=== PATIENT | female | born 1990 | race Caucasian/White ===

== ENCOUNTER 2019-04-24 18:23 | Observation (INO) | payer OTHER, SELFPAY ==
[2019-04-24 19:16] LABS: Add Urine Microscopic? YES; Appearance Urine Clear (Clear); Bacteria Urine Trace /hpf; Bilirubin Urine Negative (Negative); Blood Urine 1+ (Negative); Color Urine Yellow (Yellow); Glucose Urine UA Negative (Negative); Ketones Urine Negative (Negative); Leukocyte Esterase Ur Negative LEU/UL (Negative); Mucus Urine Few /lpf; Nitrate Urine Negative (Negative); Protein Urine Negative (Negative); RBC Urine 0-2 /hpf (0-2); Specific Grav Ur 1.017 (1.001-1.035); Squamous Epithelial Cell Urine Rare /hpf (Few); Urobilinogen Urine Negative mg/dL (<2.0); WBC Urine 0-3 /hpf
[2019-04-24 19:36] VITALS: BMI 21.2
--- NOTE | 2019-05-12 13:02 | PM.OBTRLD ---
OB - Triage/Final Diagnosis Evaluation Laboratory results: Laboratory Tests 04/24/19 19:03 Urine Color Yellow Urine Appearance Clear Urine pH 6.0 Ur Specific [place] 1.017 Urine Protein Negative Urine Glucose (UA) Negative Urine Ketones Negative Ur Blood (Man) 1+ H Urine Nitrate Negative Urine Bilirubin Negative Urine Urobilinogen Negative Leukocyte Esterase Rfl Negative Urine RBC 0-2 Urine WBC 0-3 Ur Squamous Epith Cells Rare Urine Bacteria Trace Hyaline Casts 1-2 Urine Mucus Few H Final Diagnosis (1) Spotting during in second trimester: Code(s): O26.852 - Spotting complicating , second trimester Status: Acute
== END 2019-04-24 21:40 | disposition home or self-care (01) ==
PROVIDERS: Admitting Provider Student in an Organized Health Care Education/Training Program; PCP Internal Medicine; Visit Provider Student in an Organized Health Care Education/Training Program
DX: O26.852 Spotting complicating pregnancy, second trimester (principal); Z3A.23 23 weeks gestation of pregnancy
CPT/HCPCS: 81001; 87086; G0378; G0379

== ENCOUNTER 2019-05-12 10:17 | Outpatient (CLI) | payer OTHER, SELFPAY ==
[2019-05-12 13:21] LABS: Basophils Absolute Auto 0.1 K/mm3 (0.0-0.1); Basophils Percent Auto 0.7 % (0.2-1.2); Eosinophils Absolute Auto 0.2 K/mm3 (0-0.3); Eosinophils Percent Auto 1.4 % (0-4.4); Hematocrit 36.3 % (37.0-47.0); Immature Granulocyte Absolute 0.07 K/mm3 (0.00-0.031); Immature Granulocyte Percent A 0.7 % (0-0.5); Lymphocytes Absolute Auto 1.58 K/mm3 (0.9-3.2); Lymphocytes Percent Auto 15.2 % (18.3-44.2); Mean Corpuscular HGB Conc 33.1 g/dl (32-36); Mean Corpuscular Hemoglobin 29.8 pg (26-34); Mean Corpuscular Volume 90.1 fl (80-100); Mean Platelet Volume 10.7 fl (7.4-10.4); Monocytes Absolute Auto 1.1 K/mm3 (0.1-0.6); Monocytes Percent Auto 10.1 % (2.6-8.5); Neutrophils Absolute Auto 7.5 K/mm3 (1.3-6.7); Neutrophils Percent Auto 71.9 % (45.5-73.1); Platelet Count Result 272 k/mm3 (150-375); Red Blood Count 4.03 M/mm3 (4.2-5.4); Red Cell Distribution Width 12.5 % (11.5-14.5); White Blood Count 10.4 K/mm3 (4.5-10.0)
[2019-05-12 13:29] LABS: Glucose 1 Hour PP 50gm Dose 64 mg/dL
== END 2019-05-12 10:18 | disposition home or self-care (01) ==
LOC: ANHLAB 10:18
PROVIDERS: PCP Internal Medicine; Visit Provider Obstetrics & Gynecology
DX: Z34.90 Encounter for supervision of normal pregnancy, unspecified, unspecified trimester (principal); Z3A.00 Weeks of gestation of pregnancy not specified
CPT/HCPCS: 36415; 82947; 85025

== ENCOUNTER 2019-06-02 10:04 | Outpatient (RCR) | payer OTHER, SELFPAY ==
[2019-06-02 12:15] VITALS: BP 116/63; PULSE 81
[2019-06-02 12:50] LABS: Fetal Fibronectin Negative
== END 2019-08-01 10:05 | disposition home or self-care (01) ==
LOC: ANHOBOP 10:04
PROVIDERS: PCP Internal Medicine; Visit Provider Obstetrics & Gynecology
DX: O36.8130 Decreased fetal movements, third trimester, not applicable or unspecified (principal); Z3A.29 29 weeks gestation of pregnancy
CPT/HCPCS: 59025; 82731

== ENCOUNTER 2019-07-11 14:45 | Outpatient (CLI) | payer OTHER, SELFPAY ==
[2019-07-11 15:33] LABS: Basophils Absolute Auto 0.1 K/mm3 (0.0-0.1); Basophils Percent Auto 0.5 % (0.2-1.2); Eosinophils Absolute Auto 0.1 K/mm3 (0-0.3); Eosinophils Percent Auto 0.9 % (0-4.4); Hematocrit 36.7 % (37.0-47.0); Hemoglobin 12.4 g/dL (12.0-15.0); Immature Granulocyte Absolute 0.08 K/mm3 (0.00-0.031); Immature Granulocyte Percent A 0.7 % (0-0.5); Lymphocytes Absolute Auto 1.66 K/mm3 (0.9-3.2); Lymphocytes Percent Auto 14.8 % (18.3-44.2); Mean Corpuscular HGB Conc 33.8 g/dl (32-36); Mean Corpuscular Hemoglobin 30.2 pg (26-34); Mean Corpuscular Volume 89.3 fl (80-100); Monocytes Percent Auto 8.8 % (2.6-8.5); Neutrophils Absolute Auto 8.4 K/mm3 (1.3-6.7); Neutrophils Percent Auto 74.3 % (45.5-73.1); Platelet Count Result 239 k/mm3 (150-375); Red Blood Count 4.11 M/mm3 (4.2-5.4); Red Cell Distribution Width 12.5 % (11.5-14.5); White Blood Count 11.2 K/mm3 (4.5-10.0)
[2019-07-11 16:20] LABS: HIV 1/2 Ab P24 Ag Result Negative (Negative)
[2019-07-12 08:47] LABS: Rapid Plasma Reagin Non-Reactive (NonReactive)
== END 2019-07-11 14:46 | disposition home or self-care (01) ==
PROVIDERS: PCP Internal Medicine; Visit Provider Obstetrics & Gynecology
DX: Z34.03 Encounter for supervision of normal first pregnancy, third trimester (principal)
CPT/HCPCS: 36415; 85025; 86592; 86703; G0432

== ENCOUNTER 2019-07-21 09:25 | Outpatient (CLI) | payer OTHER, SELFPAY ==
[2019-07-21] VITALS (11 sets, daily range): BP systolic 115–124; BP diastolic 62–82; PULSE 81–90; TEMP 36.5
[2019-07-21 10:24] LABS: Basophils Absolute Auto 0.1 K/mm3 (0.0-0.1); Basophils Percent Auto 0.6 % (0.2-1.2); Eosinophils Absolute Auto 0.1 K/mm3 (0-0.3); Eosinophils Percent Auto 1.2 % (0-4.4); Hematocrit 34.8 % (37.0-47.0); Hemoglobin 11.9 g/dL (12.0-15.0); Immature Granulocyte Absolute 0.06 K/mm3 (0.00-0.031); Immature Granulocyte Percent A 0.7 % (0-0.5); Lymphocytes Absolute Auto 1.47 K/mm3 (0.9-3.2); Lymphocytes Percent Auto 16.5 % (18.3-44.2); Mean Corpuscular HGB Conc 34.2 g/dl (32-36); Mean Corpuscular Hemoglobin 30.4 pg (26-34); Mean Corpuscular Volume 88.8 fl (80-100); Mean Platelet Volume 11.8 fl (7.4-10.4); Monocytes Absolute Auto 0.8 K/mm3 (0.1-0.6); Monocytes Percent Auto 9.1 % (2.6-8.5); Neutrophils Absolute Auto 6.4 K/mm3 (1.3-6.7); Neutrophils Percent Auto 71.9 % (45.5-73.1); Platelet Count Result 203 k/mm3 (150-375); Red Blood Count 3.92 M/mm3 (4.2-5.4); Red Cell Distribution Width 12.8 % (11.5-14.5); White Blood Count 8.9 K/mm3 (4.5-10.0)
[2019-07-21 10:28] LABS: Add Urine Microscopic? YES; Appearance Urine Clear (Clear); Bacteria Urine Trace /hpf; Bilirubin Urine Negative (Negative); Blood Urine Negative (Negative); Color Urine Straw (Yellow); Glucose Urine UA Negative (Negative); Ketones Urine Negative (Negative); Leukocyte Esterase Ur 1+ LEU/UL (Negative); Nitrate Urine Negative (Negative); Protein Urine Negative (Negative); RBC Urine 0-2 /hpf (0-2); Specific Grav Ur 1.009 (1.001-1.035); Squamous Epithelial Cell Urine Occasional /hpf (Few); Urobilinogen Urine Negative mg/dL (<2.0)
[2019-07-21 10:31] LABS: Creatinine Urine 37.6 mg/dL; Total Protein Urine Random 12 mg/dL
[2019-07-21 10:53] LABS: Alanine Aminotransferase 11 U/L (4-35); Albumin Level 3.3 g/dL (3.5-5.1); Alkaline Phosphatase 124 U/L (38-126); Aspartate Amino Transferase 24 U/L (14-36); Bilirubin,Total 0.3 mg/dL (0.2-1.3); Blood Urea Nitrogen 10 mg/dL (7-17); Calcium 8.7 mg/dL (8.4-10.2); Carbon Dioxide 22 mmol/L (22-30); Estimated Glomerular Filt Rate > 60; Glucose 74 mg/dL (65-105); Potassium 3.8 mmol/L (3.4-5.0); Sodium 135 mmol/L (137-145); Uric Acid 5.5 mg/dL (2.5-7.5)
--- NOTE | 2019-07-21 12:00 | PC.NURSE ---
Dr. Mccallum returned call and informed of lab results, BP's, and reactive NST. OK to discharge to home. would like pt to do a 24 hr urine collection.
[2019-07-21 12:31] LABS: Chloride 108 mmol/L (98-107)
== END 2019-07-21 12:20 | disposition home or self-care (01) ==
LOC: ANHOBOP 09:31 → ANHOBPP 09:32
PROVIDERS: PCP Internal Medicine; Visit Provider Obstetrics & Gynecology
DX: O13.9 Gestational [pregnancy-induced] hypertension without significant proteinuria, unspecified trimester (principal); Z3A.00 Weeks of gestation of pregnancy not specified
CPT/HCPCS: 36415; 59025; 80053; 81001; 82570; 84156; 84550; 85025; 99199

== ENCOUNTER 2019-07-28 11:59 | Outpatient (CLI) | payer OTHER, SELFPAY ==
[2019-07-28 12:02] VITALS: BP 127/83; PULSE 94
[2019-07-28 12:15] VITALS: BP 127/83; PULSE 105; PULSE 94
[2019-07-28 12:30] VITALS: BP 132/83; PULSE 92
[2019-07-28 12:44] LABS: Basophils Absolute Auto 0.1 K/mm3 (0.0-0.1); Basophils Percent Auto 0.5 % (0.2-1.2); Eosinophils Absolute Auto 0.1 K/mm3 (0-0.3); Hematocrit 35.6 % (37.0-47.0); Immature Granulocyte Absolute 0.05 K/mm3 (0.00-0.031); Immature Granulocyte Percent A 0.5 % (0-0.5); Lymphocytes Absolute Auto 1.67 K/mm3 (0.9-3.2); Lymphocytes Percent Auto 17.3 % (18.3-44.2); Mean Corpuscular HGB Conc 33.7 g/dl (32-36); Mean Corpuscular Hemoglobin 29.9 pg (26-34); Mean Corpuscular Volume 88.8 fl (80-100); Mean Platelet Volume 12.2 fl (7.4-10.4); Monocytes Absolute Auto 0.8 K/mm3 (0.1-0.6); Monocytes Percent Auto 8.1 % (2.6-8.5); Neutrophils Percent Auto 72.6 % (45.5-73.1); Platelet Count Result 211 k/mm3 (150-375); Red Blood Count 4.01 M/mm3 (4.2-5.4); Red Cell Distribution Width 12.6 % (11.5-14.5); White Blood Count 9.7 K/mm3 (4.5-10.0)
[2019-07-28 13:07] LABS: Alanine Aminotransferase 16 U/L (4-35); Albumin Level 3.4 g/dL (3.5-5.1); Alkaline Phosphatase 133 U/L (38-126); Aspartate Amino Transferase 31 U/L (14-36); Bilirubin,Total 0.4 mg/dL (0.2-1.3); Blood Urea Nitrogen 11 mg/dL (7-17); Calcium 8.8 mg/dL (8.4-10.2); Carbon Dioxide 21 mmol/L (22-30); Chloride 106 mmol/L (98-107); Estimated Glomerular Filt Rate > 60; Glucose 117 mg/dL (65-105); Potassium 3.6 mmol/L (3.4-5.0); Sodium 134 mmol/L (137-145); Uric Acid 5.3 mg/dL (2.5-7.5)
== END 2019-07-28 13:15 | disposition home or self-care (01) ==
LOC: ANHOBOP 12:03 → ANHOBPP 12:03
PROVIDERS: PCP Internal Medicine; Visit Provider Student in an Organized Health Care Education/Training Program
DX: O13.9 Gestational [pregnancy-induced] hypertension without significant proteinuria, unspecified trimester (principal); Z3A.00 Weeks of gestation of pregnancy not specified
CPT/HCPCS: 36415; 59025; 80053; 84550; 85025; 99199

== ENCOUNTER 2019-08-01 06:55 | Inpatient (IN) | payer OTHER, SELFPAY ==
[2019-08-01] VITALS (25 sets, daily range): BP systolic 98–145; BP diastolic 69–116; PULSE 71–116; RESP 14–16; TEMP 36.7–37.1; O2SAT 99–100; BMI 25.0
[2019-08-01 07:37] LABS: Basophils Absolute Auto 0.1 K/mm3 (0.0-0.1); Basophils Percent Auto 0.8 % (0.2-1.2); Eosinophils Absolute Auto 0.1 K/mm3 (0-0.3); Hematocrit 36.2 % (37.0-47.0); Hemoglobin 12.4 g/dL (12.0-15.0); Immature Granulocyte Absolute 0.03 K/mm3 (0.00-0.031); Immature Granulocyte Percent A 0.3 % (0-0.5); Lymphocytes Absolute Auto 1.85 K/mm3 (0.9-3.2); Lymphocytes Percent Auto 21.4 % (18.3-44.2); Mean Corpuscular HGB Conc 34.3 g/dl (32-36); Mean Corpuscular Hemoglobin 30.3 pg (26-34); Mean Corpuscular Volume 88.5 fl (80-100); Mean Platelet Volume 12.4 fl (7.4-10.4); Monocytes Absolute Auto 1.1 K/mm3 (0.1-0.6); Monocytes Percent Auto 13.1 % (2.6-8.5); Neutrophils Absolute Auto 5.5 K/mm3 (1.3-6.7); Neutrophils Percent Auto 63.4 % (45.5-73.1); Platelet Count Result 216 k/mm3 (150-375); Red Blood Count 4.09 M/mm3 (4.2-5.4); Red Cell Distribution Width 12.5 % (11.5-14.5); White Blood Count 8.7 K/mm3 (4.5-10.0)
[2019-08-01] MEDS: OXYTOCIN 30 UNITS/NS 500 ML 30 UNITS/500 ML BAG IV CONT ×2 (07:39→11:35)
[2019-08-01] MEDS: LACTATED RINGERS 1,000 ML 125 ML IV CONT (07:40)
--- NOTE | 2019-08-01 08:17 | LDADM ---
This patient, Madalyn Tovar, was admitted to Labor/Delivery/Recovery 107 on 08/01/19 at 06:55. Plans for labor, pain management and were discussed with patient. Patient/family oriented to hospital policies and general routines including ID bracelet, bed and alarms, visiting hours, pain management, procedures, bathroom and other care routines, personal items, smoking policy, room service/diet and guest tray routines, infant security routines, and visiting hours. Patient/Family are encouraged to report perceived risks to care and to ask questions if they do not understand what they are told or what they should do. See OBIX for further documentation.
--- NOTE | 2019-08-01 09:02 | WPDANESEPP ---
Anes - Eval Pre Procedure Procedure: Labor Pain Management Date/Time: 08/01/19 09:02 Surgeon: Xena Preop Diagnosis: Pain During Labor Pre Op Diagnosis: induction of labor Patient Data Age: 29 Gender: F Height: 5 ft 8 in Weight: 74.55 kg Last Vital Signs Pulse 77 08/01/19 09:01 BP 133/82 08/01/19 09:01 Allergies Allergy/AdvReac Type Severity Reaction Status Date / Time Sulfa (Sulfonamide Allergy Severe Urticaria Verified 07/28/19 10:47 Antibiotics) Home Medications Medication Instructions Recorded Confirmed Type vits 75-iron 28 mg-folic 1 pkg PO DAILY 02/03/19 08/01/19 History acid 800 mcg-omega-3 oral combo pack sertraline 50 mg tablet 50 mg PO DAILY #90 tablet 06/21/19 08/01/19 Rx Laboratory Tests 08/01/19 08/01/19 08/01/19 07:18 07:18 07:18 WBC 8.7 K/mm3 K/mm3 (4.5-10.0) RBC 4.09 M/mm3 L M/mm3 (4.2-5.4) Hgb 12.4 g/dL g/dL (12.0-15.0) Hct 36.2 % L % (37.0-47.0) MCV 88.5 fl fl (80-100) MCH 30.3 pg pg (26-34) MCHC 34.3 g/dl g/dl (32-36) RDW 12.5 % % (11.5-14.5) Plt Count 216 k/mm3 k/mm3 (150-375) MPV 12.4 fl H fl (7.4-10.4) Immature Gran % (Auto) 0.3 % % (0-0.5) Neut % (Auto) 63.4 % % (45.5-73.1) Lymph % (Auto) 21.4 % % (18.3-44.2) [place] % (Auto) 13.1 % H % (2.6-8.5) Eos % (Auto) 1.0 % % (0-4.4) Baso % (Auto) 0.8 % % (0.2-1.2) Lymph # (Auto) 1.85 K/mm3 K/mm3 (0.9-3.2) [place] # (Auto) 1.1 K/mm3 H K/mm3 (0.1-0.6) Eos # (Auto) 0.1 K/mm3 K/mm3 (0-0.3) Baso # (Auto) 0.1 K/mm3 K/mm3 (0.0-0.1) Abs Immat Gran (auto) 0.03 K/mm3 K/mm3 (0.00-0.031) Absolute Neuts (auto) 5.5 K/mm3 K/mm3 (1.3-6.7) Absolute Nucleated RBC 0.0 K/mm3 K/mm3 (0.0-0.012) Nucleated RBC % 0.0 % % (0.0-0.2) RPR Pending Rubella IgG Antibody Pending Blood Type Antibody Screen 08/01/19 07:18 WBC RBC Hgb Hct MCV MCH MCHC RDW Plt Count MPV Immature Gran % (Auto) Neut % (Auto) Lymph % (Auto) [place] % (Auto) Eos % (Auto) Baso % (Auto) Lymph # (Auto) [place] # (Auto) Eos # (Auto) Baso # (Auto) Abs Immat Gran (auto) Absolute Neuts (auto) Absolute Nucleated RBC Nucleated RBC % RPR Rubella IgG Antibody Blood Type B Positive Antibody Screen Negative : gestational age (EDC 08/16/19) Patient hx anesthesia problems: none Family hx anesthesia problems: none Prior Surgeries: tonsillectomy, ovarian cystectomy PMFSH Social History Social History Smoking status: Never smoker Second hand tobacco smoke exposure: No Alcohol intake: never Substance use: never Spiritual care concerns: No Exam Day of Procedure 08/01/19 09:02
[2019-08-01 09:48] LABS: Rubella IgG Antibody > 120.0 IU/ML
[2019-08-01] MEDS: ACETAMINOPHEN 500 MG TABLET 1000 MG PO (12:16)
[2019-08-01 13:56] LABS: Rapid Plasma Reagin Non-Reactive (NonReactive)
[2019-08-01] MEDS: IBUPROFEN 600 MG TABLET PO (16:22)
[2019-08-01] MEDS: BENZOCAINE 20% AER SPR (*SP) 56 GM CAN 1 SPRAY TOPICAL (16:23)
[2019-08-01] MEDS: WITCH HAZEL 40 PADS 1 PAD TOPICAL (16:23)
--- NOTE | 2019-08-01 17:00 | PC.NURSE ---
Patient transferred to post room #283 via wheelchair. Support person present. Oriented to unit, room, information board, rooming in, admission packet and security measures. Patient verbalizes understanding.
[2019-08-01] MEDS: ACETAMINOPHEN 325 MG TABLET 650 MG PO (20:55)
[2019-08-02 05:12] LABS: Hematocrit 34.4 % (37.0-47.0); Hemoglobin 11.6 g/dL (12.0-15.0)
[2019-08-02 08:30] VITALS: BP 120/69; PULSE 99; RESP 18; TEMP 36.8; O2SAT 99
--- NOTE | 2019-08-02 08:42 | P.PNOB_ITS ---
OB - PN: Subj Subjective Date/time seen: 08/02/19 08:42 She desires to go home today. She has good support at home. Patient comments: pain well controlled, tolerating diet and other (Decreasing lochia.) baby status: doing well and nursing well [place] feeding status: exclusively breast feeding OB - PN: Obj Data Labs CBC & Chem 7: 08/02/19 04:37 Labs: Laboratory Results - last 24 hr 08/01/19 08/01/19 08/02/19 07:18 07:18 04:37 Hgb 11.6 L Hct 34.4 L RPR Non-reactive Rubella IgG Antibody > 120.0 OB - PN A/P Plan day: 1 Plan: routine care Comments: Patient doing well. Time Spent With Patient Time: Total time spent is greater than 50% in coordination of care (as documented) at patient's floor/unit and/or counseling patient: Exam Psych: Affect: normal affect Other: Abd: fundus firm below umbilicus, nontender Perineum: healing Ext: nontender
[2019-08-02] MEDS: MULTIVIT/MIN/PREN/FOL AC/IRON TABLET 1 TAB PO (08:43)
--- NOTE | 2019-08-02 08:43 | PM.IMHP ---
H&P: HPI History of Present Illness Chief complaint: induction of labor Narrative: Madalyn Tovar is a 29 year old female LMP 11/11/19 with an EDC 08/16/19 at 37 6/7 weeks consistent with a 9 and 19 week ultrasound. She was admitted for medical induction of labor due to gestational hypertension. She deneis headache, scotomata or RUQ pain. Her labs were normal. course significant for history of anxiety. She was started on Zoloft during third trimester and initiated counseling and her anxiety improved. Labs:B+ antibody negative. HIV, GC/CHL neg, RPR NR, H/H-, HepBSag-ng, HepCab-negative.Rub-Im, TSH Nl, varicella immune, Urine neg, CF-neg, pap-nl,vitD neg, i hour glucola- 64, , hi neg, rpr-nr, GBS neg Review of Systems Review of Systems: All systems reviewed & are unremarkable except as noted in HPI and below Constitutional: Constitutional: Reports no additional constitutional complaints and Denies headache(s) Eyes: Eyes: Denies spots in vision ENT: Reports system reviewed and no additional complaints, except as documented and Denies headache(s) Cardiovascular: Cardiovascular: Denies chest pain and Denies dyspnea Respiratory: Respiratory: Denies dyspnea Gastrointestinal: Gastrointestinal: Reports no additional gastrointestinal complaints Genitourinary: Genitourinary: Reports amenorrhea Musculoskeletal: Musculoskeletal: Reports no additional musculoskeletal complaints Integumentary/Breasts: Skin/Breast: Denies breast mass and Denies rash Neurologic: Denies headache(s) Psychiatric: Psychiatric: Reports no additional psychiatric complaints [facility] Past Medical History Medical History Anxiety Chronic UTI Encounter for care in third trimester of first Encounter for supervision of normal first in second trimester Environmental allergies Gestational hypertension Surgical History Surgical History H/O ovarian cystectomy Hx of tonsillectomy Family History Family History Father Family history of hypercholesterolemia Asthma Grandparent Family history of malignant neoplasm Family history of lung cancer Leukemia Social History Social History Smoking status: Never smoker Second hand tobacco smoke exposure: No Alcohol intake: never Substance use: never Spiritual care concerns: No Meds Home Medications and Allergies Home Medications Medication Instructions Recorded Confirmed Type vits 75-iron 28 mg-folic 1 pkg PO DAILY 02/03/19 08/01/19 History acid 800 mcg-omega-3 oral combo pack sertraline 50 mg tablet 50 mg PO DAILY #90 tablet 06/21/19 08/01/19 Rx Allergies Allergy/AdvReac Type Severity Reaction Status Date / Time Sulfa (Sulfonamide Allergy Severe Urticaria Verified 07/28/19 10:47 Antibiotics) Vital Signs Vital Signs - 24 hr 08/01/19 08:46 08/01/19 09:01 08/01/19 09:16 Temperature Pulse Rate 84 77 80 Respiratory Rate Blood Pressure 128/79 133/82 145/99 H Pulse Oximetry 08/01/19 09:30 08/01/19 09:31 08/01/19 09:46 Temperature 98.7 F Pulse Rate 84 78 Respiratory Rate Blood Pressure 141/88 H 136/85 Pulse Oximetry 08/01/19 10:01 08/01/19 11:04 08/01/19 11:17 Temperature Pulse Rate 89 104 H 87 Respiratory Rate Blood Pressure 117/93 H 98/84 L 136/81 Pulse Oximetry 08/01/19 11:31 08/01/19 11:46 08/01/19 12:05 Temperature Pulse Rate 88 88 79 Respiratory Rate Blood Pressure 135/86 140/78 136/69 Pulse Oximetry 08/01/19 12:17 08/01/19 12:31 08/01/19 12:46 Temperature Pulse Rate 94 82 79 Respiratory Rate Blood Pressure 136/116 H 134/86 133/80 Pulse Oximetry 08/01/19 13:01 08/01/19 13:45 08/01/19 19:20 Temperature 98.3 F
--- NOTE | 2019-08-02 11:11 | P.PNOB_ITS ---
OB - PN: Subj Subjective Date/time seen: 08/02/19 11:11 OB - PN: Obj Data Labs CBC & Chem 7: 08/02/19 04:37 Labs: Laboratory Results - last 24 hr 08/01/19 08/02/19 07:18 04:37 Hgb 11.6 L Hct 34.4 L RPR Non-reactive OB - PN A/P Time Spent With Patient Time: Total time spent is greater than 50% in coordination of care (as docume nted) at patient's floor/unit and/or counseling patient:
--- NOTE | 2019-08-02 11:12 | PM.OBDSVD ---
DS: Admitting Diagnosis Admitting Diagnosis Admitting Diagnosis: Gestational hypertension DS: Discharge Diagnosis Discharge Diagnosis (1) Gestational hypertension: Code(s): O13.9 - Gestational [-induced] hypertension without significant proteinuria, unspecified trimester Status: Acute OB - DS: Summary OB Procedures : None OB Procedures Intrapartum: Spontaneous Vag Delivery OB Procedures: : None Time Spent with Patient Time attestation: Total time spent providing and/or coordinating discharge services: DS: Data Data Completed and Pending Pending studies at discharge: Pending at discharge 08/01/19 11:38 Surgical [PTH] Routine Labs on day of discharge: Labs from last 24 hours 08/02/19 08/01/19 04:37 07:18 Hgb 11.6 L Hct 34.4 L RPR Non-reactive Discharge Plan Discharge Attending physician on discharge: Tai Mccallum Discharging Clinician: Tai Mccallum Anticipated Discharge Date/Time: 08/02/19 14:00 Patient Disposition: Home, Self-Care Activity: pelvic rest Diet: regular Discharge Instructions: Routine post vaginal delivery precautions/instructions. Stand Alone Forms: General Discharge Information Follow-up/Referrals: Tai Mccallum MD [Physician] - (Follow up in two weeks.) Discharge Medications: No Action One A Day Women's DHA 28 mg iron- 800 mcg combo pack 1 pkg PO DAILY RF: 0 sertraline [Zoloft] 50 mg tablet 50 mg PO DAILY Qty: 90 RF: 1 Date of admission: 08/01/19 06:55 Primary Care Provider: Trung Thomas Admitting Provider: Tai Mccallum Attending physician on admission: Tai Mccallum
--- NOTE | 2019-08-02 12:48 | PC.NURSE ---
Patient viewed the discharge video Mother & Baby Care, The First Two Weeks . Patient was given the opportunity and encouraged to ask questions. Patient verbalized understanding of information shared and has been given the mother/baby guide for home reference.
--- NOTE | 2019-08-02 18:43 | PM.OBPNVD ---
OB - PN: Subj Subjective Date/time seen: 08/01/19 0745 Cat 1 tracing, cerix 2.5/75%/-2, AROM clear. Continue Pitocin. OB - PN: Obj Data Labs CBC & Chem 7: 08/02/19 04:37 Labs: Laboratory Results - last 24 hr 08/02/19 04:37 Hgb 11.6 L Hct 34.4 L OB - PN A/P Time Spent With Patient Time: Total time spent is greater than 50% in coordination of care (as documented) at patient's floor/unit and/or counseling patient:
--- NOTE | 2019-08-02 18:48 | PM.OBPRVD ---
OB - Delivery Note Procedure Delivery date: 08/01/19 Procedure: Spontaneous vaginal delivery events: Induced HTN Intrapartal events: Precipitous Labor < 3 hours Induction method: per pitocin protocol Delivery augmentation: rupture of membranes Delivery monitor: external FHT Route of delivery: Episiotomy description: None Laceration description: Vaginal - 1st Degree Delivery repair: vicryl (3.0 vicryl) Specimen: Yes Estimated blood loss (mL): 150 Anesthesia type: Local Disposition: floor Complications: None Baby Date of : 08/01/19 Time of : 10:55 Weeks of gestation at delivery: 37 gender: Male Weight (pounds): 6 Weight (ounces): 2 presentation: vertex position: Right Occiput Anterior Placenta delivery description: Spontaneous score one minute: 8 score five minutes: 9 Narrative: She was admitted and the morning of 08/01/2023 medical induction of labor with Pitocin. Pitocin was started. She had assisted rupture of membranes at approximately 7:45 a.m.. The amniotic fluid was clear. She continued with the Pitocin induction and she progressed rapidly to complete. She was given approximately 5 cc of lidocaine at the perineum to help with analgesia. She delivered a male at 10:55 a.m.. was vigorously crying upon delivery and placed on maternal abdomen. Delayed cord clamping was obtained for approximately 40 seconds. The cord was then doubly clamped and cut. Cord gases and cord blood was obtained. The placenta delivered spontaneously and intact. She sustained a vaginal laceration which was repaired with 3 0 Vicryl. There was a stretch skin at the left upper labia minora which was hemostatic and did not require suturing. Patient tolerated procedure well Estimated blood loss was 150 cc.
[2019-08-03 07:52] VITALS: BP 122/84; PULSE 98; RESP 16; TEMP 36.9; O2SAT 99
== END 2019-08-02 13:52 | disposition home or self-care (01) | DRG 807 ==
LOC: ANHLDR 06:59 → ANHOB2 13:42
PROVIDERS: Admitting Provider Obstetrics & Gynecology; PCP Internal Medicine; Visit Provider Obstetrics & Gynecology
DX: O13.4 Gestational [pregnancy-induced] hypertension without significant proteinuria, complicating childbirth (principal); Z37.0 Single live birth; Z3A.37 37 weeks gestation of pregnancy; O70.0 First degree perineal laceration during delivery; O99.344 Other mental disorders complicating childbirth; F41.9 Anxiety disorder, unspecified
CPT/HCPCS: 36415; 85014; 85018; 85025; 86592; 86762; 86850; 86900; 86901; 88307; A9270; J2590; J7120

== ENCOUNTER 2019-12-13 11:46 | Outpatient (CLI) | payer OTHER, SELFPAY ==
--- NOTE | ~2019-12-13 | US_ITS ---
US breast RT complete INDICATION: Right breast pain since yesterday. Palpable abnormality. Breast-feeding. TECHNIQUE: Dedicated right breast ultrasound COMPARISON: No prior studies for comparison. FINDINGS: The right breast is composed of normal heterogeneous echotexture without focal solid or cys tic mass. Mildly prominent ducts. IMPRESSION: 1: Normal right breast ultrasound. BI-RADS CATEGORY 1 - NEGATIVE Reviewed, dictated and finalized at location A.
== END 2019-12-13 11:47 | disposition home or self-care (01) ==
PROVIDERS: PCP Internal Medicine; Visit Provider Obstetrics & Gynecology
DX: N64.4 Mastodynia (principal)
CPT/HCPCS: 76641

== ENCOUNTER → 2020-07-05 09:02 | Outpatient (CLI) | payer OTHER, SELFPAY ==
[2020-07-05 14:19] LABS: Influenza Control Positive
[2020-07-06 18:42] LABS: SARS-CoV-2 RNA PCR Negative
== END ==
PROVIDERS: PCP Internal Medicine; Visit Provider Nurse Practitioner
DX: J02.9 Acute pharyngitis, unspecified (principal); Z20.822 Contact with and (suspected) exposure to COVID-19
CPT/HCPCS: 87804; C9803; U0003; U0005

== ENCOUNTER 2021-01-16 15:47 | Outpatient (CLI) | payer OTHER, SELFPAY ==
--- NOTE | ~2021-01-16 | US_ITS ---
EXAMINATION: US OB <=14 wk fetus w TV DATE: 01/16/2021 17:02 INDICATION: Early . Dating and viability. Ovarian cyst. TECHNIQUE: Real-time transabdominal and transvaginal pelvic ultrasound was performed. COMPARISON: Ultrasound 01/13/2019 FINDINGS: TRANSABDOMINAL ULTRASOUND: The uterus measures 9.1 x 8.0 x 5.2 cm. TRANSVAGINAL ULTRASOUND: There is an intrauterine gestational sac. A yolk sac is identified. The fet al crown rump length measures 10 mm, which correlates with an estimated gestational age of 7 weeks an d 0 day(s) (+/-) 4 day(s). heart motion is identified measuring 147 beats per minute (bpm) by M -mode Doppler. There is a small subchorionic hematoma. The right ovary measures 2.7 x 2.4 x 2.2 cm. T he left ovary measures 3.4 x 1.3 x 1.2 cm. There is no free fluid in the pelvis. IMPRESSION: 1. Single living intrauterine gestation with estimated date of delivery of 09/04/21. 2. Small subchorionic hematoma. Reviewed, dictated and finalized at location A. RONMENTAL MANAGER IMPRESSION: 1. Single living intrauterine gestation with estimated date of delivery of 09/04. 2. Small subchorionic hematoma.
== END 2021-01-16 15:48 | disposition home or self-care (01) ==
LOC: ANHIMG 15:51
PROVIDERS: PCP Internal Medicine; Visit Provider Obstetrics & Gynecology
DX: O46.8X1 Other antepartum hemorrhage, first trimester (principal); Z3A.01 Less than 8 weeks gestation of pregnancy
CPT/HCPCS: 76801; 76817

== ENCOUNTER 2021-03-25 12:48 | Outpatient (CLI) | payer OTHER, SELFPAY ==
--- NOTE | ~2021-03-25 | US_ITS ---
EXAMINATION: US OB follow up EXAM DATE: 03/25/2021 13:30 INDICATION: O46.90 - Antepartum hemorrhage, unspecified, unspecified ... Small subchorionic hematoma on ultrasound 01/16/2021. Vaginal bleeding. 2nd trimester. TECHNIQUE: Pelvic obstetrical transabdominal sonogram was performed by a technologist. There are mu ltiple grayscale and Doppler images available for interpretation. Comparison is made to prior examina tion from 01/16/2021. FINDINGS: There is a single fetus identified in breech presentation with a heart rate of 144 beats pe r minute. The placenta is located in the anterior position. There is no sonographic evidence of retr oplacental hemorrhage identified. IMPRESSION: 1. Single fetus in breech presentation with heart rate 154 beats per minute. 2. Unremarkable anteriorly located placenta. Reviewed, dictated and finalized at location A. [employer]
== END 2021-03-25 12:49 | disposition home or self-care (01) ==
LOC: ANHIMG 12:52
PROVIDERS: PCP Internal Medicine; Visit Provider Obstetrics & Gynecology
DX: O46.90 Antepartum hemorrhage, unspecified, unspecified trimester (principal); O32.1XX0 Maternal care for breech presentation, not applicable or unspecified; Z3A.00 Weeks of gestation of pregnancy not specified
CPT/HCPCS: 76816

== ENCOUNTER 2021-08-22 15:31 | Outpatient (CLI) | payer OTHER, SELFPAY ==
--- NOTE | ~2021-08-22 | US_ITS ---
EXAMINATION: US OB limited DATE: 08/22/2021 17:57 INDICATION: Possible rupture of membranes during third trimester TECHNIQUE: Real-time ultrasound of the pelvis was performed. The interpreting radiologist was not pre sent for the study. COMPARISON: 03/25/2021 FINDINGS: There is a single living fetus in vertex presentation. The placenta is anterior. card iac activity and movement are noted. heart rate is 157 beats per minute (bpm). The amniot ic fluid index is 17.2 cm which is normal (normal range: 7.3 cm to 23.9 cm). IMPRESSION: 1. Single living fetus in vertex presentation. 2. Normal amniotic fluid index. Reviewed, dictated and finalized at location F.
[2021-08-22 17:01] VITALS: BP 125/81; PULSE 89
[2021-08-22 18:05] VITALS: BP 126/91; PULSE 103
--- NOTE | 2021-08-22 18:28 | PC.NURSE ---
Dr Pan notified of RAGHAVENDRA and irreg contractions. Order to dc home. No ROM plus collected per Order of Dr Mccallum, patient was checked in office.
== END 2021-08-22 18:33 | disposition home or self-care (01) ==
LOC: ANHOBOP 16:59 → ANHLDR 17:00
PROVIDERS: PCP Internal Medicine; Visit Provider Obstetrics & Gynecology
DX: O41.8X90 Other specified disorders of amniotic fluid and membranes, unspecified trimester, not applicable or unspecified (principal); Z3A.00 Weeks of gestation of pregnancy not specified
CPT/HCPCS: 59025; 76815; 99199

== ENCOUNTER 2021-08-26 14:32 | Outpatient (RCR) | payer OTHER, SELFPAY ==
[2021-08-26 15:44] VITALS: BP 129/81; PULSE 100
== END 2021-09-10 10:51 | disposition home or self-care (01) ==
LOC: ANHOBOP 14:32
PROVIDERS: PCP Internal Medicine; Visit Provider Obstetrics & Gynecology
DX: O26.893 Other specified pregnancy related conditions, third trimester (principal); Z3A.38 38 weeks gestation of pregnancy
CPT/HCPCS: 59025

== ENCOUNTER 2021-08-28 00:37 | Inpatient (IN) | payer OTHER, SELFPAY ==
[2021-08-28] VITALS (22 sets, daily range): BP systolic 121–154; BP diastolic 70–95; PULSE 62–108; RESP 14–18; TEMP 36.2–36.9; O2SAT 97–100; BMI 25.1
[2021-08-28] MEDS: LACTATED RINGERS 1,000 ML 125 ML IV CONT (00:55)
[2021-08-28 01:00] LABS: Basophils Absolute Auto 0.1 K/mm3 (0.0-0.1); Basophils Percent Auto 0.7 % (0.2-1.2); Eosinophils Absolute Auto 0.2 K/mm3 (0-0.3); Eosinophils Percent Auto 1.3 % (0-4.4); Hematocrit 37.4 % (37.0-47.0); Hemoglobin 12.4 g/dL (12.0-15.0); Immature Granulocyte Absolute 0.08 K/mm3 (0.00-0.031); Immature Granulocyte Percent A 0.7 % (0-0.5); Lymphocytes Absolute Auto 2.74 K/mm3 (0.9-3.2); Lymphocytes Percent Auto 22.9 % (18.3-44.2); Mean Corpuscular HGB Conc 33.2 g/dl (32-36); Mean Corpuscular Volume 90.3 fl (80-100); Mean Platelet Volume 13.1 fl (7.4-10.4); Monocytes Absolute Auto 1.2 K/mm3 (0.1-0.6); Monocytes Percent Auto 9.7 % (2.6-8.5); Neutrophils Absolute Auto 7.8 K/mm3 (1.3-6.7); Neutrophils Percent Auto 64.7 % (45.5-73.1); Platelet Count Result 185 k/mm3 (150-375); Red Blood Count 4.14 M/mm3 (4.2-5.4); Red Cell Distribution Width 12.9 % (11.5-14.5)
[2021-08-28] MEDS: OXYTOCIN 30 UNITS/NS 500 ML 30 UNITS/500 ML BAG 125 UNITS IV CONT ×2 (01:34→02:18)
[2021-08-28] MEDS: LIDOCAINE HCL 1% LOCAL INJ 10 ML VIAL (01:35)
--- NOTE | 2021-08-28 02:05 | PM.IMHP ---
H&P: HPI History of Present Illness Date/Time: 08/28/21 02:05 Chief Complaint: Contractions Narrative: Patient is 31-year-old LMP 11/28/2020 currently 39 weeks gestation JOSEPH 09/04/2021. Patient is dated by LMP consistent with ultrasound on 01/16/2021 at 7 weeks gestation. Patient presented to L&D in labor. Reports onset of contractions at 10:45 p.m. States that contractions increased in frequency and intensity. Upon arrival to labor and delivery, patient was noted to be 7 cm dilated in active labor. Patient denies any vaginal bleeding or leakage of fluid. Reports good movement. Decision was made to admit patient in active labor. Review of Systems Review of Systems: All systems reviewed & are unremarkable except as noted in HPI and below Constitutional: Constitutional: Reports as per HPI and Reports no additional constitutional complaints Eyes: Eyes: Reports as per HPI and Reports no additional eye complaints ENT: Reports system reviewed and no additional complaints, except as documented and Reports as per HPI Cardiovascular: Cardiovascular: Reports as per HPI and Reports no additional cardiovascular complaints Respiratory: Respiratory: Reports as per HPI and Reports no additional respiratory complaints Gastrointestinal: Gastrointestinal: Reports as per HPI and Reports no additional gastrointestinal complaints Genitourinary: Genitourinary: Reports no additional female genitourinary complaints and Reports as per HPI Musculoskeletal: Musculoskeletal: Reports no additional musculoskeletal complaints and Reports as per HPI Integumentary/Breasts: Skin/Breast: Reports system reviewed and no additional complaints, except as docu and Reports as per HPI Neurologic: Reports system reviewed and no additional complaints, except as documented and Reports as per HPI Psychiatric: Psychiatric: Reports no additional psychiatric complaints and Reports as per HPI Endocrine: Endocrine: Reports no additional endocrine complaints and Reports as per HPI Hematologic/Lymphatic: Hematologic/Lymphatic: Reports no additional hematologic/lymphatic complaints and Reports as per HPI Allergic/Immunologic: Allergic/Immunologic: Reports no additional allergic/immunologic complaints and Reports as per HPI PMFSH Past Medical History Medical History (Updated 08/28/21 @ 02:13 by Precious Pan MD) Anxiety Chronic UTI Environmental allergies Surgical History Surgical History H/O ovarian cystectomy Hx of tonsillectomy Family History Family History Father Family history of hypercholesterolemia Asthma Grandparent Family history of malignant neoplasm Family history of lung cancer Leukemia Social History Social History Smoking status: Never smoker Second hand tobacco smoke exposure: No Alcohol intake: never Substance use: never Spiritual care concerns: No Meds Home Medications and Allergies Home Medications Medication Instructions Recorded Confirmed Type docosahexaenoic acid 200 mg 200 mg PO DAILY 01/16/21 08/23/21 History capsule ( DHA) aspirin 81 mg tablet,delayed 81 mg PO DAILY 04/09/21 08/23/21 History release fluticasone propionate 50 1 spray intranasal DAILY #16 grams 07/11/21 08/23/21 Rx mcg/actuation nasal spray,suspension (Flonase Allergy Relief) omeprazole magnesium 20 mg 20 mg PO DAILY #30 tabs 07/11/21 08/23/21 Rx tablet,delayed release (Prilosec OTC) Allergies Allergy/AdvReac Type Severity Reaction Status Date / Time Sulfa (Sulfonamide Allergy Severe Urticaria Verified 08/26/21 10:48 Antibiotics) Vital Signs Vital Signs - 24 hr 08/28/21 01:02 08/28/21 01:16 08/28/21 02:01 Pulse Rate 91 86 77 Blood Pressure 141/88 H 138/84 154/94 H Exam Const: General: cooperative, no
--- NOTE | 2021-08-28 02:14 | P.PCNOB_ITS ---
OB - Delivery Note Procedure Delivery date: 08/28/21 Procedure: Patient is a 31-year-old now who presented to labor and delivery during the water leak repairer of 08/28/2021 in active labor. Patient was approximately 7 cm dilated at presentation. Patient was admitted to L&D. Patient made quick cervical change and was noted to be fully dilated at 1:22 a.m. Artificial rupture membranes was performed at same time. Clear amniotic fluid was noted. Patient was prepped draped for delivery. Patient was encouraged to push and found to be pushing well. At 1:28 a.m., patient delivered infant head atraumatically and without difficulty in PETER presentation. Occiput restituted to maternal left side. With subsequent push, the infant's neck, shoulders, and rest of body delivered without difficulty. was crying spontaneously. was placed on maternal abdomen where care was assumed by awaiting nursing staff. Delayed cord clamping was performed for approximately 60 seconds. The cord was clamped and cut. A segment of cord was collected for cord gases. Cord blood was collected. The placenta was delivered spontaneous and intact. Uterine fundus was noted be firm with massage. On inspection, a superficial perineal abrasion was noted as well as a superficial left periurethral abrasion. The periurethral abrasion was noted to be hemostatic and did not require repair. Minimal oozing was noted from superficial perineal abrasion. Pressure was applied, however, minimal oozing persisted. A small amount of 1% lidocaine was administered for local anesthesia. A [id number] suture using 3-0 Vicryl was placed. Excellent hemostasis was noted. Patient was cleansed and dried. Estimated blood loss for entire delivery was 150 cc. Infant was live born female , Apgars 9 and 9, weighing 7 lbs 2 oz. Both mother and baby doing well at end of delivery. Delivery monitor: External FHT and External Uterine Route of delivery: Laceration Description: Periurethral (superficial left periurethral abrasion) and Superficial (perineal abrasion) Delivery repair: vicryl (3-0 vicryl) Specimen: Yes (cord gases and cord blood) Quantitative Blood Loss (ml): 150 Anesthesia type: None Disposition: Floor Complications: No immediate complications Baby Date of : 08/28/21 Time of : 01:28 Weeks of gestation at delivery: 39 Infant gender: Female Weight (pounds): 7 Weight (ounces): 2 presentation: vertex position: Left Occiput Anterior Placenta delivery description: Spontaneous Cord Vessel Description: 3 Vessels and Delayed Cord Clamping score one minute: 9 score five minutes: 9 AMG Delivery Billing Delivery Delivery: Delivery Charge
[2021-08-28] MEDS: HYDROcodone/acetaminophen (*CRX) 5-325 MG TABLET 1 TAB PO ×3 (02:58→14:12)
[2021-08-28] MEDS: WITCH HAZEL 40 PADS 1 PAD TOPICAL (05:45)
[2021-08-28] MEDS: BENZOCAINE 20% AER SPR (*SP) 56 GM CAN 1 SPRAY TOPICAL (05:45)
[2021-08-28] MEDS: FAMOTIDINE 20 MG TABLET PO (06:01)
[2021-08-28] MEDS: ACETAMINOPHEN 325 MG TABLET 650 MG PO (06:01)
--- NOTE | 2021-08-28 07:05 | PC.NURSE ---
PT arrived on unit via wheelchair accompanied by spouse and and taken to room 277. PT introductions made and plan of care discussed per post , pain management, breast feeding, daily care. PT received such instructions per one to one discussion, mom baby care guide and demonstrations this shift. PT and spouse both recipients of such care and no barriers to learning identified at this time. Welcome packet discussed and pt verbalized understanding of such care
[2021-08-28] MEDS: IBUPROFEN 600 MG TABLET PO ×3 (09:22→23:00)
[2021-08-28] MEDS: DOCUSATE SODIUM 100 MG CAPSULE PO ×2 (09:23→17:30)
[2021-08-28] MEDS: MULTIVIT/MIN/PREN/FOL AC/IRON TABLET 1 TAB PO (09:23)
[2021-08-28] MEDS: LANOLIN (LANSINOH) 7.5 GM CREAM 1 APPLIC TOPICAL (09:25)
[2021-08-28 10:27] LABS: Rapid Plasma Reagin Non-Reactive (NonReactive)
--- NOTE | 2021-08-28 12:34 | PC.NURSE ---
[id number] Introductions were made, then consulted with patient to assess needs related to . Mother led the conversation with her experience feeding her so far. Mother works well with her with encouragement and education. Encouraged understanding of the benefits of skin to skin (unwrapping and placing vertically on her chest), responsive feeding and how to watch for early feeding signs, frequency of feeding on demand about every 8-12 times in 24 hours (every 2-3 hours), milk production, duration of feeding, signs of adequate intake/output and how to record on the feeding sheet. Reviewed positioning and ear, shoulder, hip alignment, supporting the breast, asymmetrical latch (off-center), and leading with the chin with a big open side gape. Demonstrated stimulating to wake to feed with unwrapping, checking diaper, burping, massage, and position changing. Mother states she did not latch infant because she was waiting for someone to help her. RN was called at 1130 to come to the room around noon for feeding. With efforts to wake the , after a few attempts, RN was able to assist mother with to latch optimally to the right breast in football position for 7 min with no pain. Demonstrated how to detach infant after mother stated it was starting to pinch . placed skin to skin, then assisted to the left breast using football positioning. Enforced education given to mother of how to visualize suck/swallow ratios and drinking at the breast. Infant was able to maintain latch without discomfort to mother. Nipple care reviewed with optimal latch and good positioning. Resources used to facilitate learning were used with the visual handouts/ tool/mom and baby guide. Mother voiced understanding of responsive feedings, stimulating with skin to skin, hand expressed colostrum, touch, talking to to encourage if it has been 2 -3 hours since the start of the last , to call if infant does not latch or there is discomfort with . Reported to the primary RN.
[2021-08-29] MEDS: ACETAMINOPHEN 325 MG TABLET 650 MG PO (02:16)
[2021-08-29 04:40] VITALS: BP 117/79; PULSE 73; RESP 14; TEMP 36.4; O2SAT 99
[2021-08-29] MEDS: IBUPROFEN 600 MG TABLET PO ×2 (04:52→10:16)
[2021-08-29 06:02] LABS: Hematocrit 32.8 % (37.0-47.0); Hemoglobin 10.7 g/dL (12.0-15.0)
[2021-08-29 10:15] VITALS: BP 120/76; PULSE 84; RESP 16; TEMP 36.3; O2SAT 99
[2021-08-29] MEDS: MULTIVIT/MIN/PREN/FOL AC/IRON TABLET 1 TAB PO (10:16)
[2021-08-29] MEDS: DOCUSATE SODIUM 100 MG CAPSULE PO (10:16)
--- NOTE | 2021-08-29 14:54 | PC.NURSE ---
Patient discharged to home accompanied by spouse and . Patient left unit via wheel chair to personal vehicle.
--- NOTE | 2021-08-29 16:03 | PC.NURSE ---
[id number] Consulted with patient before she was discharged to home. Mother was hesitant with her confidence in latching infant. RN unwrapped infant to check tongue for mother as she was concerned about a tongue tie. Infant began to show feeding cues so RN placed infant skin to skin vertically between mother's breast. Infant began rooting and searching and self latched optimally to the left breast with a modified cross cradle and mother was encouraged to bring her infant closer to her body with ear, shoulder, and hip in alignment within 5-6 min of RN being in the room. Rocking motion and good suck/swallow ratios were visualized by RN, primary RN, mother, and new orientee RN Mother was encouraged.
[2021-08-30 10:00] VITALS: BP 118/75; PULSE 87; RESP 18; TEMP 36.8; O2SAT 100
--- NOTE | 2021-09-30 08:04 | PM.DS ---
DS: Admitting Diagnosis Discharge Date 08/29/21 Admitting Diagnosis Active labor DS: Discharge Diagnosis Discharge Diagnosis Plan delivery normal DS: Summary Hospital Course Reason for hospitalization: active labor Hospital Course: patient admitted in active labor. She had an uncomplicated vaginal delivery. she did well. Baby was doing well. She had adequate pain control tolerated regular diet and was ambulating well she requested discharge home on day 1. Time Spent with Patient Time attestation: Total time spent providing and/or coordinating discharge services: Exam Const: General: no acute distress Orientation/consciousness: oriented to person, oriented to place and oriented to time HENMT: General nose exam: Normal external nose present Eyes: General: appearance normal, both eyes and all related structures Resp: Effort & Inspection: normal respiratory effort GI: Inspection: normal to inspection Other: Fundus below umbilicus firm nontender Skin: General skin exam: normal color Neuro: General: oriented to person, oriented to place and oriented to time Extrem: General: normal to inspection and no calf tenderness Psych: Appearance: grossly normal Mental Status: mental status grossly normal Discharge Plan Discharge Attending physician on discharge: Tai Mccallum Consulting providers: Precious Pan Discharging Clinician: Tai Mccallum Anticipated Discharge Date/Time: 08/29/21 11:07 Patient Disposition: Home, Self-Care Activity: may shower, no straining and pelvic rest Diet: regular Discharge Instructions: Education: Mom and Baby Guide Given to: Mother Follow-Up: Call your delivering provider's office for an appointment to be seen in: 6 Weeks Mom and baby should come to the [facility] for the follow-up appointment. Appointment Date/Time: August 30, 2021 at 10:00 am What to expect at your follow-up visit: Blood Pressure Check Call [phone] if you are unable to keep your appointment time. BREAST CARE: * Wear a snug supportive bra. * For engorgement discomfort: Breast Feeding: * Apply warm moist washcloths * Express milk as needed to relieve engorgement * Wear loose clothing Bottle Feeding: * May apply ice packs * For sore nipples: * Identify correct latch-on * Apply warm moist washcloths before and after nursing * Air dry nipples after nursing * May apply Lansinoh cream to nipples PERINEAL CARE: * Until bleeding stops, use your seth bottle after urinating * Change your pad frequently throughout the day * You may take sitz baths several times a day (fill your bathtub with warm water and soak for 20 minutes.) Do NOT bathe in the water * No tub baths until seen by your physician - You may shower ACTIVITY: * Rest as much as possible. * Do not exercise or lift anything heavier than your baby (such as laundry or other children.) * Avoid stairs or driving as much as possible. * Do not put anything into the vagina. No douching, tampons, or sexual activity until seen by physician. NOTIFY PHYSICIAN IF YOU HAVE ANY QUESTIONS OR IF ANY OF THE FOLLOWING SYMPTOMS OCCUR: * If your perineum becomes red, swollen, or more painful than what you have experienced in the hospital. * If your vaginal bleeding becomes foul smelling. * If your vaginal bleeding becomes more heavy than a period or if your bleeding changes from pink to bright red. However, you may pass an occasional walnut-sized clot once or twice for the first week . * If you experience a sharp, shooting pain in you calves. * If you discover a hard, reddened area on your breast or if you experience flu-like symptoms. * If you have a fever of 100.4 or greater DIET: * Eat regular, well-balanced meals. * Drink plenty of fluids daily. If , drink to th
== END 2021-08-29 12:36 | disposition home or self-care (01) | DRG 807 ==
LOC: ANHLDR 01:44 → ANHOB2 07:19
PROVIDERS: Student in an Organized Health Care Education/Training Program; Admitting Provider Obstetrics & Gynecology; PCP Internal Medicine; Visit Provider Obstetrics & Gynecology
DX: O62.3 Precipitate labor (principal); Z37.0 Single live birth; Z3A.39 39 weeks gestation of pregnancy
CPT/HCPCS: 36415; 85014; 85018; 85025; 86592; 86850; 86900; 86901; A9270; J2590; J7120

== ENCOUNTER 2022-10-08 13:48 | Outpatient (CLI) | payer OTHER, SELFPAY ==
--- NOTE | ~2022-10-08 | US_ITS ---
EXAMINATION: US OB follow up DATE: 10/08/2022 15:41 INDICATION: Antepartum hemorrhage, unspecified. TECHNIQUE: Real-time ultrasound of the pelvis was performed. COMPARISON: None. FINDINGS: There is a single living fetus in variable presentation. The placenta is left posterior. heart rate is 165 beats per minute (bpm). The amniotic fluid volume is subjectively normal. The following biometric data were obtained: Biparietal diameter (BPD): 3.1 cm; head circumference (HC): 11.5 cm; abdominal circumference (AC): 9. 5 cm; femur length (FL): 1.7 cm. These measurements are concordant. Estimated weight is 120 g +/- 18 g, which correlates with the 48th percentile when 03/31/23 is u sed as estimated date of delivery. As single measurements, these parameters are each equal to the following estimated gestational ages: BPD: 15 weeks 6 days. HC: 15 weeks 4 days. AC: 15 weeks 4 days. FL: 14 weeks 6 days. estimated gestational age based solely on measurements from this exam is 15 weeks 3 days +/- 1 weeks 1 days. IMPRESSION: 1. Single living fetus in variable presentation. 2. Normal placenta. 3. Estimated weight is 120 g +/- 18 g, which correlates with the 48th percentile when 03/31/23 is used as estimated date of delivery. Reviewed, dictated and finalized at location A. IMPRESSION: 1. Single living fetus in variable presentation. 2. Normal placenta. 3. Estimated weight is 120 g +/- 18 g, which correlates with the 48th pe rcentile when 03/31/23 is used as estimated date of delivery.
== END 2022-10-08 13:49 | disposition home or self-care (01) ==
PROVIDERS: PCP Internal Medicine; Visit Provider Obstetrics & Gynecology
DX: O46.90 Antepartum hemorrhage, unspecified, unspecified trimester (principal); Z3A.00 Weeks of gestation of pregnancy not specified
CPT/HCPCS: 76816

== ENCOUNTER 2023-01-08 16:17 | Outpatient (CLI) | payer OTHER, SELFPAY ==
--- NOTE | ~2023-01-08 | US_ITS ---
EXAMINATION: US OB limited DATE: 01/08/2023 17:31 INDICATION: Leaking fluid. Third trimester . TECHNIQUE: Real-time ultrasound of the pelvis was performed. COMPARISON: Ultrasound 10/08/2022 FINDINGS: There is a single fetus in variable presentation. The placenta is anterior. heart rate is 126 beats per minute (bpm). The amniotic fluid index is 19.6 cm, which is normal. The cervical length is 4.3 cm on transabdominal images, which is normal. IMPRESSION: 1. Single living fetus in variable presentation. 2. Normal amniotic fluid index. Reviewed, dictated and finalized at location E. ARY CLASS TEACHER
[2023-01-08 16:37] VITALS: BP 111/61; PULSE 82
[2023-01-08 16:45] VITALS: BP 111/60; PULSE 83
[2023-01-08 17:00] VITALS: BP 115/61; PULSE 84
[2023-01-08 17:47] VITALS: BP 115/61; PULSE 85
--- NOTE | 2023-01-08 18:05 | PC.NURSE ---
1738--Report to Dr. Mccallum re: fhr tracing, ROM plus neg, RAGHAVENDRA 19.59, and Cervical exam per Julio César Gou RN. Orders to [place] home.
== END 2023-01-08 17:40 | disposition home or self-care (01) ==
LOC: ANHOBOP 16:20 → ANHOBPP 16:20
PROVIDERS: PCP Internal Medicine; Visit Provider Obstetrics & Gynecology
DX: O41.8X90 Other specified disorders of amniotic fluid and membranes, unspecified trimester, not applicable or unspecified (principal); Z3A.00 Weeks of gestation of pregnancy not specified
CPT/HCPCS: 59025; 76815; 84112; 99199

== ENCOUNTER 2023-03-12 09:24 | Outpatient (RCR) | payer OTHER, SELFPAY ==
--- NOTE | ~2023-03-12 | US_ITS ---
EXAMINATION: US OB limited w BPP DATE: 03/12/2023 10:37 INDICATION: Decreased movement during third trimester TECHNIQUE: Real-time pelvic ultrasound was performed. The interpreting radiologist was not present fo r the study. COMPARISON: None. FINDINGS: There is a single living fetus in vertex presentation. The placenta is anterior. heart rate is 159 beats per minute (bpm). The amniotic fluid index is 11.7 cm which is normal (normal range: 7.5 cm to 24.4 cm). Biophysical profile performed by the technologist: breathing (30 sec sustained breathing in 30 minutes): 2 out of 2 movement (3 gross body movements in 30 minutes): 2 out of 2 tone (one episode of mbouygb-jkfvkiidz-orgnjfs limb movement): 2 out of 2 Amniotic fluid pocket (2 cm): 2 out of 2 Total score: 8 out of 8 IMPRESSION: 1. Single living fetus in vertex presentation. 2. Biophysical profile 8 out of 8. 3. Normal amniotic fluid index. Reviewed, dictated and finalized at location A. ELLA TIPPER
[2023-03-12 09:57] VITALS: BP 119/65; PULSE 105
== END 2023-06-10 23:59 | disposition home or self-care (01) ==
LOC: ANHOBOP 09:24
PROVIDERS: Visit Provider Obstetrics & Gynecology
DX: O36.8130 Decreased fetal movements, third trimester, not applicable or unspecified (principal); Z3A.37 37 weeks gestation of pregnancy
CPT/HCPCS: 59025; 76815; 76819

== ENCOUNTER 2023-03-15 21:22 | Inpatient (IN) | payer OTHER, SELFPAY ==
[2023-03-15] VITALS (34 sets, daily range): BP systolic 108–134; BP diastolic 55–80; PULSE 83–136; TEMP 36.6; O2SAT 96–100; BMI 24.1
[2023-03-15] MEDS: fentaNYL CITRATE INJ (*CRX) 100 MCG/2 ML VIAL 50 MCG IV PUSH (21:50)
[2023-03-15 21:53] LABS: Basophils Absolute Auto 0.1 K/mm3 (0.0-0.1); Basophils Percent Auto 0.7 % (0.2-1.2); Eosinophils Absolute Auto 0.2 K/mm3 (0-0.3); Eosinophils Percent Auto 1.9 % (0-4.4); Hematocrit 35.5 % (37.0-47.0); Hemoglobin 12.1 g/dL (12.0-15.0); Immature Granulocyte Percent A 0.9 % (0-0.5); Lymphocytes Percent Auto 19.9 % (18.3-44.2); Mean Corpuscular HGB Conc 34.1 g/dl (32-36); Mean Corpuscular Hemoglobin 30.3 pg (26-34); Mean Platelet Volume 10.9 fl (7.4-10.4); Monocytes Absolute Auto 0.9 K/mm3 (0.1-0.6); Neutrophils Absolute Auto 7.9 K/mm3 (1.3-6.7); Neutrophils Percent Auto 68.6 % (45.5-73.1); Platelet Count Result 235 k/mm3 (150-375); Red Blood Count 3.99 M/mm3 (4.2-5.4); Red Cell Distribution Width 12.7 % (11.5-14.5); White Blood Count 11.6 K/mm3 (4.5-10.0)
[2023-03-15] MEDS: LACTATED RINGERS 500 ML 999 ML IV CONT (22:08)
--- NOTE | 2023-03-15 22:17 | LDADM ---
This patient, Madalyn Tovar, was admitted to Labor/Delivery/Recovery 105 on 03/15/23 at 21:22. Plans for labor, pain management and were discussed with patient. Patient/family oriented to hospital policies and general routines including ID bracelet, bed and alarms, visiting hours, pain management, procedures, bathroom and other care routines, personal items, smoking policy, room service/diet and guest tray routines, infant security routines, and visiting hours. Patient/Family are encouraged to report perceived risks to care and to ask questions if they do not understand what they are told or what they should do. See OBIX for further documentation.
--- NOTE | 2023-03-15 22:31 | WPDANESEPP ---
Anes - Eval Pre Procedure Procedure: Labor epidural Date/Time: 03/15/23 22:31 Surgeon: Elio Preop Diagnosis: Abdominal pain with contractions Pre Op Diagnosis: Contractions Patient Data Age: 33 Gender: F Height: 1.73 m Weight: 72 kg Last Vital Signs O2 Del Method Room Air 03/15/23 22:15 Allergies Allergy/AdvReac Type Severity Reaction Status Date / Time Sulfa (Sulfonamide Allergy Severe Urticaria Verified 03/12/23 08:46 Antibiotics) Home Medications Medication Instructions Recorded Confirmed Type docosahexaenoic acid 200 mg 200 mg PO DAILY 01/16/21 03/12/23 History capsule ( DHA) fluticasone propionate 50 1 spray intranasal DAILY #16 grams 08/19/22 03/12/23 Rx mcg/actuation nasal spray,suspension (Flonase Allergy Relief) aspirin 81 mg tablet,delayed 81 mg PO DAILY 11/13/22 03/12/23 History release (Adult Low Dose Aspirin) famotidine 20 mg tablet 20 mg PO QHS #30 tabs 12/02/22 03/12/23 Rx metoclopramide HCl 5 mg tablet 5 mg PO Q6-8H PRN nausea and 12/02/22 03/12/23 Rx (Reglan) vomiting #30 tabs hydrocortisone 2.5 % topical cream 1 applic topical QID PRN rash #30 01/13/23 03/12/23 Rx grams Laboratory Tests 03/15/23 21:48 WBC 11.6 H K/mm3 (4.5-10.0) RBC 3.99 L M/mm3 (4.2-5.4) Hgb 12.1 g/dL (12.0-15.0) Hct 35.5 L % (37.0-47.0) MCV 89.0 fl (80-100) MCH 30.3 pg (26-34) MCHC 34.1 g/dl (32-36) RDW 12.7 % (11.5-14.5) Plt Count 235 k/mm3 (150-375) MPV 10.9 H fl (7.4-10.4) Immature Gran % (Auto) 0.9 H % (0-0.5) Neut % (Auto) 68.6 % (45.5-73.1) Lymph % (Auto) 19.9 % (18.3-44.2) [place] % (Auto) 8.0 % (2.6-8.5) Eos % (Auto) 1.9 % (0-4.4) Baso % (Auto) 0.7 % (0.2-1.2) Lymph # (Auto) 2.30 K/mm3 (0.9-3.2) [place] # (Auto) 0.9 H K/mm3 (0.1-0.6) Eos # (Auto) 0.2 K/mm3 (0-0.3) Baso # (Auto) 0.1 K/mm3 (0.0-0.1) Abs Immat Gran (auto) 0.10 H K/mm3 (0.00-0.031) Absolute Neuts (auto) 7.9 H K/mm3 (1.3-6.7) Absolute Nucleated RBC 0.0 K/mm3 (0.0-0.012) Nucleated RBC % 0.0 % (0.0-0.2) RPR Pending HIV 1&2 Ab/P24 Ag 4thGn Pending : gestational age HCG: positive Patient hx anesthesia problems: none Family hx anesthesia problems: none Results Review: All pre-operative results and documents have been reviewed as part of the pre-operative evaluation. [facility] Past Medical History Medical History Anxiety Anxiety and depression Chronic UTI Environmental allergies History of vaginal delivery x2 and not yet delivered Surgical History Surgical History H/O ovarian cystectomy Hx of tonsillectomy Family History Family History Father Family history of hypercholesterolemia Asthma Grandparent Family history of malignant neoplasm Family history of lung cancer Leukemia Social History Social History Smoking status: Never smoker Second hand tobacco smoke exposure: No Alcohol intake: never Substance use: never Do You Feel Safe in your Home?: Yes Lack of Transportation: No Lack of Food: Never True Current Housing: I Have Housing Concerned About Future Housing: No Difficulty Paying Gas/Electric Bills: No Difficulty Paying for Meds: No Currently Unemployed: No Education: Trade/Vocational Certificate Difficulty w/ Childcare or Family Care: No Spiritual care concerns: No Exam Day of Procedure 03/15/23 22:31 Patient weight: normal Lungs: clear to auscultation
[2023-03-15 22:46] LABS: HIV 1/2 Ab P24 Ag Result Negative (Negative)
[2023-03-15] MEDS: LACTATED RINGERS 1,000 ML 125 ML IV CONT (23:40)
[2023-03-16] VITALS (30 sets, daily range): BP systolic 92–131; BP diastolic 59–82; PULSE 70–134; RESP 16–18; TEMP 36.6–37.3; O2SAT 95–99
[2023-03-16] MEDS: FAMOTIDINE 20 MG/2 ML VIAL IV PUSH (00:48)
[2023-03-16] MEDS: CALCIUM CARBONATE (TUMS) 500 MG (200 MG ELEMENTAL) PO (00:49)
[2023-03-16] MEDS: ONDANSETRON INJ 4 MG/2 ML VIAL IV PUSH ×2 (01:13→07:30)
[2023-03-16] MEDS: OXYTOCIN 30 UNITS/NS 500 ML 30 UNITS/500 ML BAG IV CONT (01:20)
--- NOTE | 2023-03-16 03:08 | WPDHPUPDATE1 ---
History and Physical Update Update Date/Time: 03/16/23 03:08 33 yo at 38w0d who presents in labor. History and Physical has been reviewed, including an updated exam of the patient. There are NO changes in the patient's condition. Risks, benefits, and alternatives have been discussed and questions answered. Patient agrees to proceed with procedure. admit to L&D routine admission orders continuous EFM GBS neg pt to have epidural will plan for expectant management
--- NOTE | 2023-03-16 03:10 | PM.OBPRVD ---
OB - Vaginal Delivery Note Procedure Delivery date: 03/16/23 Induction method: None Delivery augmentation: Pitocin Delivery monitor: External FHT and External Uterine Route of delivery: Indication for instrumentation: nonreassuring FHR tracing Episiotomy description: None Laceration Description: None Specimen: No Quantitative Blood Loss (ml): 100 Anesthesia type: Epidural Disposition: Floor Complications: No immediate complications Narrative: Patient pushed for a spontaneous vaginal delivery. The fetus was delivered atraumatically and placed on the maternal abdomen. The cord was clamped and cut after 1 minute of life. The cord was double clamped and cut and a segment of cord was collected for cord gases. Cord blood was collected for blood type and Coomb's testing. The placenta delivered spontaneously and was noted to be intact. The perineum was inspected and noted to be intact. The uterus was firm and good hemostasis was noted. Baby Date of : 03/16/23 Time of : 02:53 Weeks of gestation at delivery: 38 gender: Male presentation: vertex position: Right Occiput Anterior Placenta delivery description: Spontaneous Cord Vessel Description: 3 Vessels score one minute: 9 score five minutes: 9 AMG Delivery Billing Delivery Delivery: Delivery Charge
[2023-03-16] MEDS: OXYTOCIN 30 UNITS/NS 500 ML 30 UNITS/500 ML BAG 125 UNITS IV CONT (03:37)
--- NOTE | 2023-03-16 05:31 | OBPPTRN ---
Patient transferred to post room #287 via wheelchair. Support person present. Oriented to unit, room, information board, rooming in, admission packet and security measures. Patient verbalizes understanding.
[2023-03-16] MEDS: ACETAMINOPHEN 325 MG TABLET 650 MG PO ×3 (07:31→21:30)
[2023-03-16 10:05] LABS: Rapid Plasma Reagin Non-Reactive (NonReactive)
[2023-03-16] MEDS: MULTIVIT/MIN/PREN/FOL AC/IRON TABLET 1 TAB PO (10:19)
--- NOTE | 2023-03-16 10:43 | PC.NURSE ---
[id number] Introductions were made, then consulted with patient to assess needs related to . Discussed with mother her?plans to feed?her infant, the?experience so far, and mother is laid-back with [id number] under a fuzzy warm blanket stating hasn't eaten in a while but won't wake up. Resources provided for inpatient and outpatient services with name written on the communication board. Mother voiced understanding of information, unwrapped infant a bit, encouraged stimulating with position change, and Dr. Mccallum walked in and patient changed focus.
--- NOTE | 2023-03-16 13:22 | PC.NURSE ---
Dr. Liang notified that parents want to discuss history of sibling being tongue tied and discuss concerns about this infant.
[2023-03-16] MEDS: IBUPROFEN 600 MG TABLET PO ×2 (15:39→21:30)
[2023-03-17] MEDS: IBUPROFEN 600 MG TABLET PO (03:55)
[2023-03-17] MEDS: ACETAMINOPHEN 325 MG TABLET 650 MG PO (03:55)
[2023-03-17] MEDS: ONDANSETRON HCL ODT 4 MG TABLET PO (03:55)
[2023-03-17 04:21] LABS: Hematocrit 37.3 % (37.0-47.0); Hemoglobin 12.2 g/dL (12.0-15.0)
--- NOTE | 2023-03-17 08:19 | WPDANLDPN2 ---
Anes-Prog Note L&D Date/Time: 03/17/23 08:19 Comfortable throughout: labor and delivery Neuraxial method: epidural Epidural/Spinal procedure site: tender Neuro status: Neuro function grossly intact. Good foot movement. Patient states still feeling some numbness in her bottom at this time. Cardiovascular status: normal Respiratory status: normal Airway patency: baseline Mental status: baseline Post-Op hydration status: normal Vital Signs: Last Vital Signs Temp 36.7 C 03/16/23 19:45 Pulse 94 03/16/23 19:45 Resp 16 03/16/23 19:45 BP 118/81 03/16/23 19:45 Pulse Ox 99 03/16/23 19:45 O2 Del Method Room Air 03/16/23 19:45 Pain score (VAS): 3/10 I/O: Intake & Output 03/16/23 03/17/23 03/17/23 23:59 07:59 15:59 Intake Total 240 Balance 240 Post-procedural complaints: none Patient feedback: Patient satisfied with anesthetic care.
[2023-03-17 09:00] VITALS: BP 113/66; PULSE 95; RESP 16; TEMP 36.4; O2SAT 98
[2023-03-17] MEDS: DOCUSATE SODIUM 100 MG CAPSULE PO (09:21)
[2023-03-17] MEDS: MULTIVIT/MIN/PREN/FOL AC/IRON TABLET 1 TAB PO (09:21)
--- NOTE | 2023-03-17 10:48 | PC.NURSE ---
[id number] Mother verbalizes she is able to independently latch . Infant is content after on the right breast. Mother states she has a blister on her left nipple. We reviewed and discussed positioning asymmetrically latching to the breast to protect the nipple with a big, open, wide, gape mouth. is currently meeting outcomes for weight, output, jaundice, blood sugar and feeding frequencies of 8-12 times in 24 hours. Mother is encouraged to call for assistance if her doesn?t latch, pain with latching, questions or concerns. Mother voiced understanding of information. Reported to the Primary RN.
--- NOTE | 2023-03-17 11:20 | PC.NURSE ---
[id number] Mother requested assistance with getting latched. Mother states infant was giving feeding cues when she called and now is back asleep. Demonstrated stimulating for wakefulness and a wet diaper was changed. Once feeding cues were visualized infant was brought to the left breast with an asymmetrical cross cradle hold. With mother sandwiching her breast was able to latch deeply, swallowing, with minimal discomfort. Once mother let go of her sandwich hold the infant stopped swallowing, the latch became shallow and we detached . Reviewed positioning and ear, shoulder, hip alignment, supporting the breast to facilitate a deep latch, asymmetrical latch (off-center), leading with the chin with a big, open, wide gape and body close to mother holding the sandwich hold until she is able to let it go without changing the latch to a shallow latch. Mother voiced understanding of information and will call if there is a request for assistance. Reported to the Primary RN.
--- NOTE | 2023-03-17 12:47 | PC.NURSE ---
[id number] Purposefully rounded to assess needs related to mother being concerned about a possible tongue restriction like her daughter. Encouraged mother to watch for what the tongue does when the opens the mouth to latch. Mother visualizes open mouth with tongue down and latches independently to the left breast using cross cradle. Mother states there's discomfort at first, then it subsides. Infant demonstrates swallowing with good rocking jaw motion and rounded cheek line. There's no misshaping after the detaching. Reminded mother of detaching infant with nipple protection after mother detached with her thumb not completely protecting her nipple from being pinched. The blister on the nipple remains present and appears a bit larger. Mother is planning on having an appointment with a [employer] MILL WORKER at [facility] Pediatric therapy after discharged to home.
--- NOTE | 2023-03-17 13:18 | PM.OBPNVD ---
OB - PN: Subj Subjective Date/time seen: 03/17/23 13:18 Interval history: She request discharge. Patient comments: tolerating diet and other (Decreasing lochia.) [place] baby status: doing well and nursing well [place] feeding status: exclusively breast feeding OB - PN: Obj Data Labs 03/17/23 03:02 Labs: Laboratory Results - last 24 hr 03/17/23 03:02 Hgb 12.2 Hct 37.3 OB - PN A/P Plan day: 2 Plan: discharge home and other Comments: Will try stronger pain medication, if it works then will discharge home with it. Follow up 4-6 weeks. Discharge instructions provided. Time Spent With Patient Time: Total time spent is greater than 50% in coordination of care (as documented) at patient's floor/unit and/or counseling patient: Time with patient: less than 15 minutes Exam Psych: Affect: normal affect Other: Abd: fundus firm below umbilicus, nontender Perineum: healing Ext: nontender
[2023-03-17] MEDS: HYDROcodone/acetaminophen (*CRX) 5-325 MG TABLET 1 TAB PO (13:47)
[2023-03-17] MEDS: ONDANSETRON HCL ODT 4 MG TABLET (13:51)
[2023-03-18 10:24] VITALS: BP 97/86; PULSE 84; RESP 18; TEMP 37.1; O2SAT 100
--- NOTE | 2023-04-10 14:39 | PM.OBDSVD ---
DS: Admitting Diagnosis Discharge Date 03/17/23 Admitting Diagnosis Labor DS: Discharge Diagnosis Discharge Diagnosis (1) Delivery normal: Code(s): O80 - Encounter for full-term uncomplicated delivery Status: Acute OB - DS: Summary Hospital Course Hospital Course: She was admitted for labor. She had an uncomplicated vaginal delivery. She did well . Baby did well. She was discharged to home with baby on day 2. OB Procedures : None and Ultrasound OB Procedures Intrapartum: Spontaneous Vag Delivery OB Procedures: : None Peripartum Data Laceration Description: None Episiotomy description: None Time Spent with Patient Time attestation: Total time spent providing and/or coordinating discharge services: Discharge Plan Discharge Attending physician on discharge: Tai Mccallum Consulting providers: Alexx Danielson; Zaynab Jeffries; Chet Ballard Discharging Clinician: Tai Mccallum Anticipated Discharge Date/Time: 03/17/23 16:05 Patient Disposition: Home, Self-Care Activity: may shower and pelvic rest Diet: regular Discharge Instructions: Education: Mom and Baby Guide Given to: Mother Follow-Up: Call your delivering provider's office for an appointment to be seen. Mom and baby should come to the [facility] for the follow-up appointment. Appointment Date/Time: March 18, 2023 at 10:00 am What to expect at your follow-up visit: Physical Assessment Call [phone] if you are unable to keep your appointment time. BREAST CARE: * Wear a snug supportive bra. * For engorgement discomfort: Breast Feeding: * Apply warm moist washcloths * Express milk as needed to relieve engorgement * Wear loose clothing * For sore nipples: * Identify correct latch-on * Apply warm moist washcloths before and after nursing * Air dry nipples after nursing * May apply Lansinoh cream to nipples PERINEAL CARE: * Until bleeding stops, use your seth bottle after urinating * Change your pad frequently throughout the day * You may take sitz baths several times a day (fill your bathtub with warm water and soak for 20 minutes.) Do NOT bathe in the water * No tub baths until seen by your physician - You may shower ACTIVITY: * Rest as much as possible. * Do not exercise or lift anything heavier than your baby (such as laundry or other children.) * Avoid stairs or driving as much as possible. * Do not put anything into the vagina. No douching, tampons, or sexual activity until seen by physician. NOTIFY PHYSICIAN IF YOU HAVE ANY QUESTIONS OR IF ANY OF THE FOLLOWING SYMPTOMS OCCUR: * If your perineum becomes red, swollen, or more painful than what you have experienced in the hospital. * If your vaginal bleeding becomes foul smelling. * If your vaginal bleeding becomes more heavy than a period or if your bleeding changes from pink to bright red. However, you may pass an occasional walnut-sized clot once or twice for the first week . * If you experience a sharp, shooting pain in you calves. * If you discover a hard, reddened area on your breast or if you experience flu-like symptoms. DIET: * Eat regular, well-balanced meals. * Drink plenty of fluids daily. Stand Alone Forms: General Discharge Information Follow-up/Referrals: Tai Mccallum MD [Physician] - 2 Weeks (Call for appointment) Discharge Medications: Continued DHA 200 mg capsule 200 mg PO DAILY Discontinued fluticasone propionate [Flonase Allergy Relief] 50 mcg/actuation spray,suspension 1 spray intranasal DAILY Qty: 16 3RF Rx Instructions: administer into each nostril aspirin [Adult Low Dose Aspirin] 81 mg tablet,delayed release (DR/EC) 81 mg PO DAILY metoclopramide HCl [Reglan] 5 mg tablet 5 mg PO Q6-8H PRN (Reason: nausea and vomiting) Qty: 30 0RF famotidine 20 mg
== END 2023-03-17 16:34 | disposition home or self-care (01) | DRG 807 ==
LOC: ANHLDR 21:33 → ANHOB2 03-16 05:45
PROVIDERS: Student in an Organized Health Care Education/Training Program; Admitting Provider Obstetrics & Gynecology; Visit Provider Obstetrics & Gynecology
DX: O36.8330 Maternal care for abnormalities of the fetal heart rate or rhythm, third trimester, not applicable or unspecified (principal); Z37.0 Single live birth; Z3A.38 38 weeks gestation of pregnancy
CPT/HCPCS: 36415; 85014; 85018; 85025; 86592; 86703; 86850; 86900; 86901; A9270; G0432; J2405; J2590; J2795; J3010; J7120

== ENCOUNTER 2023-05-27 07:41 | Outpatient (CLI) | payer OTHER, SELFPAY ==
--- NOTE | ~2023-05-27 | US_ITS ---
EXAMINATION: US pelvic complete w TV DATE: 05/27/2023 08:23 INDICATION: Pelvic pain and irregular bleeding Comparison:No prior studies for comparison. TECHNIQUE: Multiple transabdominal and endovaginal sonographic images of the pelvis performed. FINDINGS: The uterus measures 6.6 x 5 x 4.5 cm. The endometrial complex measures 3 mm. The right ovary measures 2.7 x 1.8 x 2.9 cm and the left ovary measures 1.7 x 1.5 x 1.6 cm. There is a right ovarian cyst measuring 1.9 cm. There are small follicles in each ovary. Normal doppler signal in both ovaries. There is no free fluid in the pelvis. There are no abnormal masses seen on either side. IMPRESSION: 1. Right ovarian cyst measuring 1.9 cm. Reviewed, dictated and finalized at location [facility].
== END 2023-05-27 07:42 ==
LOC: GOSHIMG 07:42
PROVIDERS: PCP Nurse Practitioner Family; Visit Provider Nurse Practitioner Family
DX: N83.201 Unspecified ovarian cyst, right side (principal)
CPT/HCPCS: 76830; 76856

== ENCOUNTER 2024-08-18 14:28 | Outpatient (CLI) | payer OTHER, SELFPAY ==
--- NOTE | ~2024-08-18 | US_ITS ---
Pelvic ultrasound. Clinical History: Irregular menses Technique: Realtime transabdominal and transvaginal scanning of the pelvis was performed. Color flow Doppler and Doppler spectral analysis were performed. Findings: The uterus is retroverted.. The endometrial stripe has a thickness of 9 mm. No focal mass is identified. The right ovary measures 2.3 x 1.6 x 1.4 cm. No significant right ovarian or adnexal mass is seen. The left ovary measures 3.6 x 3.3 cm. Possible hyperechoic cyst or other lesion in the left ovary alfredo suring 2.3 cm. There is no evidence of free fluid in the cul de sac. Impression: Possible hyperechoic cyst or other lesion in the left ovary measuring 2.3 cm. Correlate for acute hem orrhagic cyst versus possibly dermoid or other lesion. Follow-up exam in 6 weeks advised to reassess. Reviewed, dictated and finalized at [facility]. Impression: Possible hyperechoic cyst or other lesion in the left ovary measuring 2.3 cm. C orrelate for acute hemorrhagic cyst versus possibly dermoid or other lesion. Fo llow-up exam in 6 weeks advised to reassess.
== END 2024-08-18 14:29 | disposition home or self-care (01) ==
LOC: GOSHIMG 14:28
PROVIDERS: PCP Obstetrics & Gynecology; Visit Provider Obstetrics & Gynecology
DX: N92.6 Irregular menstruation, unspecified (principal)
CPT/HCPCS: 76830; 76856